=== PATIENT | female | born 1980 | race Caucasian/White ===

== ENCOUNTER 2016-11-06 18:52 | Emergency (ER) | payer OTHER ==
[~2016-11-06] VITALS: Ht 157.5 cm; Wt 68.0 kg
[2016-11-06 18:56] VITALS: BP 134/84
== END 2016-11-06 21:31 | disposition admitted as inpatient to this hospital (09) ==
LOC: ERH 18:52
DX: R39.15 Urgency of urination (principal); R30.0 Dysuria
CPT/HCPCS: 81001; 99281